=== PATIENT | female | born 1985 | race Caucasian/White ===

== ENCOUNTER → 2016-10-11 | Outpatient (CLI) | payer OTHER | LOC: NM 08:00 | DX: C50.312 Malignant neoplasm of lower-inner quadrant of left female breast (principal); R11.2 Nausea with vomiting, unspecified; G44.89 Other headache syndrome; R94.31 Abnormal electrocardiogram [ECG] [EKG] | CPT/HCPCS: 78306; A9503 ==

== ENCOUNTER → 2020-06-28 | Outpatient (CLI) | payer OTHER | LOC: SLEEP 14:17 | DX: G47.33 Obstructive sleep apnea (adult) (pediatric) (principal); G47.10 Hypersomnia, unspecified; R40.0 Somnolence | CPT/HCPCS: 95810 ==